=== PATIENT | male | born 1950 | race Hispanic/Latino ===

== ENCOUNTER 2023-02-06 21:53 | Emergency (ER) | payer OTHER ==
--- OUTSIDE RECORDS SUMMARY | 2023-02-06 21:57 | XMS REPORT | Continuity of Care Document ---
:1950 Author Organization [facility] t Address [address] [place] [address] [place] [id number] Care Team Providers Name Role Phone Reynold Rodriguez DO Primary Care Physician [phone] LOU Attending Clinician Unavailable Reynold Rodriguez Attending Clinician [phone] LOU Admitting Clinician Unavailable Payers Payer Name Policy Type Policy Number Effective Date Expiration Date Erin steen [facility] [place] - [id number] 2019 [employer] 00:00:00 (MEDICARE REPLACEMENT/ADVANT AGE - HMO) Problems Condition Condition Condition Status Onset Resolution Last Treating Co mments Source Name Details Category Date Date Treatment Clinician Date Hyperchole Hyperchole Problem Active [facility] sterolemia sterolemia 2-11 [facility] 00:[facility]: ty 00 [facility] Hypertensi Hypertensi Problem Active [facility] ve ve 2-11 Communi disorder Disorder 00:00: ty 00 [facility] Coronary Coronary Problem Active [facility] arterioscl Arterioscl 2-11 [facility] erosis erosis 00:00: ty 00 [facility] Gastroesop Gastroesop Problem Active 2020- S [facility] hageal hageal 2-11 Communi reflux Reflux 00:00: ty disease Disease 00 Hospita Clinics Umbilical Umbilical Problem Active [facility] hernia Hernia 2-11 Communi 00:00: ty 00 [facility] Clin[facility] Hiatal Hiatal Problem Active [place] hernia Hernia 2-11 Communi 00:00: ty 00 [facility] Stented Stented Problem Active [place] artery Artery 2- [facility] 00[facility] Prediabete Prediabete Problem Active [facility] s s 2 Communi 00:00: ty [facility] History of History of Problem Active [facility] cerebrovas Cerebrovas 2 Co mmuni cular cular 00:00: ty accident Accident 00 Hospit a without without l residual Residual Clinic s deficits Deficits Bilateral Bilateral Problem Active [facility] knee pain Knee Pain 2 Comm [facility] 00:00: ty [facility] 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 [facility] gait gait 06-20 00:00: Hospita 00 l Abnormal Abnormal Disease Active 2015-06 Metho di finding of finding of 06-20 trunk trunk 00:00: Hospita 00 l Dysarthria Dysarthria Disease Active 2015-06 M ethodi 06-20 00:00: Hospita 00 l Essential Essential Disease Active 2015-06 Met hodi hypertensi hypertensi 06-20 on on 00:00: Hospita 00 l Sialorrhea Sialorrhea Disease Active 2015-06 M ethodi 06-20 00:00: Hospita 00 l Headache Headache Disease Active 2015-06 Metho di 06-20 00:00: Hospita 00 l HLD HLD Disease Active 2015-06 Method[facility] (hyperlipi (hyperlipi 06-20 demia) demia) 00:00: Hospita 00 l 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 06-20 e e 00:00: Hospita polyneurop polyneurop 00 l athy athy Intracrani Intracrani Disease Active 2015-06 M ethodi al al 06-20 hemorrhage hemorrhage 00:00: Ho spita 00 l Obstructiv Obstructiv Disease Active 2015-06 M ethodi e sleep e sleep 06-20 apnea 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 00 l Pain in Pain in Disease Active 2015-06 [facility] extremity extremity 06-20 00:00: Hospita 00 l Rheumatoid Rheumatoid Disease Active 2015-06 M ethodi arthritis arthritis 06-20 00:00: Hospita 00 l Allergies, Adverse Reactions, Alerts Allergy Allergy Status Severity Reaction(s) Onset Inactive Treating Comm ents Source Name Type Date Date Clinician No Known Propensi Active 2015-06 [facility] i Drug ty to 06-20 st Allergie adverse 00:00: Hospita s reaction 00 l s to drug Social History Social Habit Start Date Stop Date Quantity Comments Source [facility] History of tobacco Current smoker [facility] History of Social 2019-02-02 2019-02-[address] function 00:00:00 00:00:00 Hospital Alcohol intake 2018-11-13 2018-11-13 Current [facility] 00:00:00 00:00:00 non-drinker of Hospital alcohol (finding) Tobacco use and 2018-05-13 2018-05-13 Smokeless [facility] exposure 00:00:00 00:00:00 tobacco non-user Hospital Sex Assigned At [birth year] [facility] 00:00:00 00:00:00 Hospital Smoking Status Start Date Stop Date Source Ex-smoker 2018-05-13 00:00:00 2018-05-13 [facility] Ordered Filled Start Stop Current Ordering Indication Dosage Frequency Signature Comments Components Source Medication Medication Date Date Medication? Clinician (SIG) Name Name aspirin 81 2017-06 Yes 81mg QD Chew 81 mg M ethodi mg chewable - daily. st tablet 13:40: Hospita 47 l metoprolol 2017-06 Yes 25mg QD Take 25 mg M ethodi succinate 07-[address] XL 13:40: daily. Hospita (TOPROL-XL) 47 l 25 mg 24 hr tablet nitroglycer 2017-[address] 0.4 M ethodi in 1-[address] (NITROSTAT) 13:40: the tongue Hospita 0.[address] 47 every 5 l tablet (five) minutes as needed for chest pain. ranitidine 2017-06 Yes 150mg Q.5D Take 150 Me thodi (ZANTAC) 1-[address] 150 MG 13:40: mouth 2 Hospita tablet 47 (two) l times a day. sertraline 2017-06 Yes 100mg QD Take 100 Me [facility] (ZOLOFT) 1-[address] 100 MG 13:40: mouth Hospita tablet 47 daily. 2 l tabs qd traZODone 2017-06 Yes 50mg QD Take 50 mg Me thodi (DESYREL) 1-[address] 50 MG 13:40: nightly as Hospit a tablet 47 needed for l sleep. busPIRone 2017-06 Yes 15mg Q.5D Take 15 mg [facility] (BUSPAR) 15 -[address] MG tablet 13:40: (two) Hospita 47 times a l day. aspirin 81 2017-06 Yes 81mg QD Chew 81 mg M ethodi mg chewable - daily. st tablet 13:40: Hospita 47 l metoprolol 2017-06 Yes 25mg QD Take 25 mg M ethodi succinate -[address] XL 13:40: daily. Hospita (TOPROL-XL) 47 l 25 mg 24 hr tablet nitroglycer 2017-[address] 0.4 M ethodi in 1-[address] (NITROSTAT) 13:40: the tongue Hospita 0.[address] 47 every 5 l tablet (five) minutes as needed for chest pain. ranitidine 2017-06 Yes 150mg Q.5D Take 150 Me [facility] (ZANTAC) 1-[address] 150 MG 13:40: mouth 2 Hospita tablet 47 (two) l times a day. sertraline 2017-06 Yes 100mg QD Take 100 Me [facility]odi (ZOLOFT) 1-[address] 100 MG 13:40: mouth Hospita tablet 47 daily. 2 l tabs qd traZODone 2017-06 Yes 50mg QD Take 50 mg Me [facility] (DESYREL) 1-[address] 50 MG 13:40: nightly as Hospit a tablet 47 needed for l sleep. busPIRone 2017-06 Yes 15mg Q.5D Take 15 mg Me thodi (BUSPAR) 15 -[address] MG tablet 13:40: (two) Hospita 47 times a l day. aspirin 81 2017-06 Yes 81mg QD Chew 81 mg M ethodi mg chewable - daily. st tablet 13:40: Hospita 47 l metoprolol 2017-06 Yes 25mg QD Take 25 mg M ethodi succinate -[address] XL 13:40: daily. Hospita (TOPROL-XL) 47 l 25 mg 24 hr tablet nitroglycer 2017-[address] 0.4 M ethodi in 1-[address] (NITROSTAT) 13:40: the tongue Hospita 0.[address] 47 every 5 l tablet (five) minutes as needed for chest pain. ranitidine 2017-06 Yes 150mg Q.5D Take 150 Me [facility] (ZANTAC) 1-[address] 150 MG 13:40: mouth 2 Hospita tablet 47 (two) l times a day. sertraline 2017-06 Yes 100mg QD Take 100 Me [facility] (ZOLOFT) 1-[address] 100 MG 13:40: mouth Hospita tablet 47 daily. 2 l tabs qd traZODone 2017-06 Yes 50mg QD Take 50 mg Me thodi (DESYREL) -[address] 50 MG 13:40: nightly as Hospit a tablet 47 needed for l sleep. busPIRone 2017-06 Yes 15mg Q.5D Take 15 mg Me thodi (BUSPAR) 15 -[address] MG tablet 13:40: (two) Hospita 47 times a l day. carvedilol Yes [id number] TAKE 1 M ethodi (COREG) 1-[address] 6.25 MG 00:00: MOUTH Hospita tablet 00 TWICE A l DAY WITH MEALS carvedilol Yes [id number] TAKE 1 M ethodi (COREG) 1-[address] 6.25 MG 00:00: MOUTH Hospita tablet 00 TWICE A l DAY WITH MEALS carvedilol Yes [id number] TAKE 1 M ethodi (COREG) 1-[address] 6.25 MG 00:00: MOUTH Hospita tablet 00 TWICE A l DAY WITH MEALS lisinopril 2016-06 Yes [id number] TAKE 1 M ethodi (PRINIVIL,Z 2-22 TABLET (30 st ESTRIL) 30 00:00: MG TOTAL) Ho spita mg tablet 00 BY MOUTH l ONCE DAILY. lisinopril 2016-06 Yes [id number] TAKE 1 M ethodi (PRINIVIL,Z 2-22 TABLET (30 st ESTRIL) 30 00:00: MG TOTAL) Ho spita mg tablet 00 BY MOUTH l ONCE DAILY. lisinopril 2016-06 Yes [id number] TAKE 1 M ethodi (PRINIVIL,Z 2-22 TABLET (30 st ESTRIL) 30 00:00: MG TOTAL) Ho spita mg tablet 00 BY MOUTH l ONCE DAILY. atorvastati 2016-06 Yes [id number] TAKE 1 Methodi n (LIPITOR) 0-[address] 80 MG 00:00: MOUTH Hospita tablet 00 EVERY DAY l atorvastati 2016-06 Yes [id number] TAKE 1 Methodi n (LIPITOR) 0-[address] 80 MG 00:00: MOUTH Hospita tablet 00 EVERY DAY l atorvastati 2016-06 Yes [id number] TAKE 1 Methodi n (LIPITOR) 0-[address] 80 MG 00:00: MOUTH Hospita tablet 00 EVERY DAY l dextrometho 2015-06 Yes [id number] 1{capsu QD Take 1 Methodi rphan-quini 1-03 le} capsule by st dine 00:00: mouth Hospita (NUEDEXTA) 00 daily. l 20-10 mg capsule dextrometho 2015-06 Yes [id number] 1{capsu QD Take 1 Methodi rphan-quini 1-03 le} capsule by st dine 00:00: mouth Hospita (NUEDEXTA) 00 daily. l 20-10 mg capsule dextrometho 2015-06 Yes [id number] 1{capsu QD Take 1 Methodi rphan-quini 1-03 le} capsule by st dine 00:00: mouth Hospita (NUEDEXTA) 00 daily. l 20-10 mg capsule ibuprofen 2015-06 Yes TK 1 T PO Met hodi (ADVIL,MOTR 0-[address] IN) 600 MG 00:00: TAKE WITH Ho spita tablet 00 FOOD l ibuprofen 2015-06 Yes TK 1 T PO Met hodi (ADVIL,MOTR 0-[address] IN) 600 MG 00:00: TAKE WITH Ho spita tablet 00 FOOD l ibuprofen 2015-06 Yes TK 1 T PO Met hodi (ADVIL,MOTR 0-[address] IN) 600 MG 00:00: TAKE WITH Ho spita tablet 00 FOOD l Fluad Quad Fluad Quad No Fluad Quad [place] [id number](6 (6 0640-1210( Communi 5yr up)(PF) 5yr up)(PF) 65yr t y 60 mcg (15 60 mcg (15 up)(PF) 60 Hospita mcg x mcg x mcg (15 l 4)/0.5mL IM 4)/0.5mL IM mcg x Clinics syringe ADM syringe ADM 4)/0.5mL 0.5 ML IM 0.5 ML IM IM syringe UTD UTD ADM 0.5 ML IM UTD Immunizations Ordered Immunization Filled Immunization Date Status Commen ts Source Name Name influenza, influenza, 2020-03-13 Completed [facility] injectable, injectable, 00:00:00 Hospital Cli nics quadrivalent quadrivalent Vital Signs Vital Name Observation Time Observation Value Comments Source BP Diastolic 2020-07-29 00:00:00 70 mm[Hg] [facility] s Height 2020-07-29 00:00:00 68 [in_i] [facility] s BMI (Body Mass 2020-07-29 00:00:00 35 kg/m2 [facility]) [facility] BP Systolic 2020-07-29 00:00:00 142 mm[Hg] [facility] s Body Weight 2020-07-29 00:00:00 3680 [oz_av] [facility] s Procedures Procedure Date / Time Performing Clinician Source Performed Colonoscopy [facility] Coronary Artery Bypass [facility] mmunity Grafts X 3 Hospital Clinics Open Heart Surgery [facility] Reconstruction of [facility] Cl[facility] cs Ligament of Knee Joint Plan of Care Planned Activity Planned Date Details Comments Source Future Scheduled 2023-01-18 [facility] Test 03:59:27 malignant neoplasm of colon (procedure) [code = 411334859] Future Scheduled 2023-01-18 [facility]ening for [facility] Test 03:59:27 malignant neoplasm of colon (procedure) [code = 782131886] Future Scheduled 2023-01-18 [facility]ening for [facility] Test 03:59:27 malignant neoplasm of colon (procedure) [code = 185449629] Future Scheduled 2023-01-18 COVID-19 VACCINE (#1) [facility] Test 03:59:27 [code = COVID-19 VACCINE (#1)] Future Scheduled 2023-01-18 SHINGLES [facility]ACCINES [facility] 03:59:27 of 2) [code = SHINGLES VACCINES (1 of 2)] Future Scheduled 2023-01-18 65+ [facility] 03:59:27 VACCINE (1 - PCV) [code = 65+ PNEUMOCOCCAL VACCINE (1 - PCV)] Future Scheduled 2023-01-18 INFLUENZA VACCINE [facility] Test 03:59:27 [code = INFLUENZA VACCINE] Future Scheduled 2023-01-18 Screening for [facility] Test 03:59:27 malignant neoplasm of colon (procedure) [code = 813032927] Future Scheduled 2023-01-18 Screening for [facility] Test 03:59:27 malignant neoplasm of colon (procedure) [code = 458437264] Future Scheduled 2022-02-15 HEPATITIS B VACCINES [facility] Test 04:01:48 (1 of 3 - 3-dose series) [code = HEPATITIS B VACCINES (1 of 3 - 3-dose series)] Future Scheduled 2022-02-15 COVID-19 VACCINE (#1) [facility] Test 04:01:48 [code = COVID-19 VACCINE (#1)] Future Scheduled 2022-02-15 SHINGLES VACCINES (1 [facility] Test 04:01:48 of 2) [code = SHINGLES VACCINES (1 of 2)] Future Scheduled 2022-02-15 65+ [facility]AL [facility] Test 04:01:48 VACCINE (1 - PCV) [code = 65+ PNEUMOCOCCAL VACCINE (1 - PCV)] Future Scheduled 2022-02-15 INFLUENZA VACCINE [facility] Test 04:01:48 [code = INFLUENZA VACCINE] Future Scheduled 2022-02-15 COLONOSCOPY SCREENING [facility] Test 04:01:48 [code = COLONOSCOPY SCREENING] Future Scheduled 2022-02-15 HEPATITIS B VACCINES [facility] Test 04:01:48 (1 of 3 - 3-dose series) [code = HEPATITIS B VACCINES (1 of 3 - 3-dose series)] Future Scheduled 2022-02-15 COVID-19 VACCINE (#1) [facility] Test 04:01:48 [code = COVID-19 VACCINE (#1)] Future Scheduled 2022-02-15 SHINGLES [facility]ACCINES ([facility] Test 04:01:48 of 2) [code = SHINGLES VACCINES (1 of 2)] Future Scheduled 2022-02-15 65+ P[facility]UMOCOCCAL [facility] Test 04:01:48 VACCINE (1 - PCV) [code = 65+ PNEUMOCOCCAL VACCINE (1 - PCV)] Future Scheduled 2022-02-15 INFLUENZA VACCINE [facility] Test 04:01:48 [code = INFLUENZA VACCINE] Future Scheduled 2022-02-15 COLONOSCOPY SCREENING [facility] Hospital Test 04:01:48 [code = COLONOSCOPY SCREENING] Encounters Start End Encounter Admission Attending Care Care Encounter Source Date/Time Date/Time Type Type Clinicians Facility Department ID 2020-08-03 2020-08-03 Outpatient EROBEYON_R [facility] [id number] [place] 12:18:00 12:18:00 0216 [facility] 2020-07-29 2020-07-29 Outpatient BRODY_R [facility] [id number] [place] 06:21:00 06:21:00 021 Commun i ty [facility]ospita l Clinics 2020-07-29 2020-07-29 [facility] [place] 00:00:00 00:00:00 [facility] DO: [address] [facility] [address], HOSPITAL Clinic s [place], [id number] BRODY , Ph. 2020-07-29 2020-07-29 Outpatient Brody [facility] [id number] 00:00:00 00:00:00 Reynold [id number] Ruiz [id number] 2020-07-27 2020-07-27 Outpatient ERKAIA_R [facility] [address] [place] 01:58:00 01:58:00 0209 Commun i ty Hospita l Clinics Results This patient has no known results.
[2023-02-06 22:45] LABS: Absolute Lymphocytes (CBC) 2.2 K/uL (0.7-4.9); Hematocrit 41.8 % (39.6-49.0); Lymphocytes % 24.7 % (15.3-44.8); MCV 87.6 fL (80-100); MPV 8.7 fL (7.6-11.3); Platelets 156 thou/uL (152-406); RBC Red Blood Cell Count 4.77 M/uL (4.33-5.43)
[2023-02-06 23:09] LABS: Albumin 3.7 g/dL (3.4-5.0); Bilirubin Direct 0.1 mg/dL (0-0.2); Bilirubin Indirect, Calculated 0.4 mg/dL (0.2-0.8); Bilirubin Total 0.5 mg/dL (0.2-1.0); Magnesium 2.3 mg/dL (1.6-2.4); Potassium 3.6 mEq/L (3.5-5.1); Protein, Total 7.3 g/dL (6.4-8.2); Troponin High Sensitivity 16.5 pg/mL (<58.9)
--- NOTE | 2023-02-06 23:40 | EDPHYS ---
Physician Documentation [facility] Name: Chas Bruce Age: 72 yrs Sex: Male : 1950 Arrival Date: 02/06/2023 Time: 21:53 Bed 8 Private MD: ED Physician Willard Walsh HPI: 02/06 22:17 This 72 yrs old Male presents to ER via Unassigned with complaints of Nose sp3 Bleed, dizziness. 22:17 72-year-old male with a history of coronary artery disease status post triple bypass, sp3 hypertension presents to the ED with chief complaint right-sided epistaxis now resolved and mild dizziness while walking into the emergency department. Dizziness is described as vertiginous in nature with room spinning and no signs or symptoms of syncope, near syncope, headache, chest pain, shortness of breath, abdominal pain, nausea, vomiting, diarrhea, rash, focal neurological deficit, weakness, or any other signs or symptoms on ROS at this time.. Historical: - Allergies: 22:21 No Known Allergies; mb9 - Home Meds: 22:21 atorvastatin 80 mg oral tablet every evening [Active]; aspirin 81 mg Oral capsule daily mb9 [Active]; isosorbide mononitrate 60 mg Oral Tablet, Extended Release 24 hr once [Active]; sertraline 100 mg oral tablet daily [Active]; - PMHx: 22:21 Myocardial infarction; Chronic obstructive lung disease; Hypertensive disorder; mb9 - PSHx: 22:21 Triple bypass; mb9 - Immunization history:: Adult Immunizations up to date. - Social history:: Smoking status: Patient denies any tobacco usage or history of. ROS: 22:18 Constitutional: Negative for fever, chills, and weight loss, Eyes: Negative for injury, sp3 pain, redness, and discharge, Neck: Negative for injury, pain, and swelling, Cardiovascular: Negative for chest pain, palpitations, and edema, Respiratory: Negative for shortness of breath, cough, wheezing, and pleuritic chest pain, Abdomen/GI: Negative for abdominal pain, nausea, vomiting, diarrhea, and constipation, Back: Negative for injury and pain, MS/Extremity: Negative for injury and deformity, Skin: Negative for injury, rash, and discoloration, Allergy/Immunology: Negative for hives, rash, and allergies, Endocrine: Negative for neck swelling, polydipsia, polyuria, polyphagia, and marked weight changes, Hematologic/Lymphatic: Negative for swollen nodes, abnormal bleeding, and unusual bruising. 22:18 All other systems are negative. Exam: 22:18 Constitutional: This is a well developed, well nourished patient who is awake, alert, sp3 and in no acute distress. Head/Face: Normocephalic, atraumatic. Eyes: Pupils equal round and reactive to light, extra-ocular motions intact. Lids and lashes normal. Conjunctiva and sclera are non-icteric and not injected. Cornea within normal limits. Periorbital areas with no swelling, redness, or edema. ENT: Nares patent. No nasal discharge, no septal abnormalities noted. External auditory canals are clear. Oropharynx with no redness, swelling, or masses, exudates, or evidence of obstruction, uvula midline. Mucous membranes moist. Neck: Trachea midline, no thyromegaly or masses palpated, and no cervical lymphadenopathy. Supple, full range of motion without nuchal rigidity, or vertebral point tenderness. No Meningismus. Chest/axilla: Normal chest wall appearance and motion. Nontender with no deformity. No lesions are appreciated. Cardiovascular: Regular rate and rhythm with a normal S1 and S2. No gallops, murmurs, or rubs. Normal PMI, no JVD. No pulse deficits. Respiratory: Lungs have equal breath sounds bilaterally, clear to auscultation and percussion. No rales, rhonchi or wheezes noted. No increased work of breathing, no retractions or nasal flaring. Abdomen/GI: Soft, non-tender, with normal bowel sounds. No distension or tympany. No guarding or rebound. No evidence of tenderness throughout. Back: No spinal tenderness. No costovertebral tenderness. Full range of motion. Skin: Warm, dry with normal turgor. Normal color with no rashes, no lesions, and no evidence of cellulitis. MS/ Extremity: Pulses equal, no cyanosis. Neurovascular intact. Full, normal range of motion. Neuro: Awake and alert, GCS 15, oriented to person, place, time, and situation. Cranial nerves II-XII grossly intact. Motor strength 5/5 in all extremities. Sensory grossly intact. Cerebellar exam normal. Normal gait. Psych: Awake, alert, with orientation to person, place and time. Behavior, mood, and affect are within normal limits. 22:18 ENT: Mild dried blood noted in the right anterior medial nare. No active bleeding noted.. Vital Signs: 22:20 BP 157 / 73; Pulse 68; Resp 18; Temp 98.2; Pulse Ox 100% on R/A; Weight 101.15 kg; mb9 Height 5 ft. 7 in. ; 23:25 BP 133 / 55; Pulse 55; Resp 18; Pulse Ox 93% on R/A; kd3 22:20 Body Mass Index 34.93 (101.15 kg, 170.18 cm) mb9 MDM: 22:11 Patient medically screened. sp3 22:18 Data reviewed: vital signs, nurses notes, lab test result(s), EKG, radiologic studies. sp3 ED course: 72-year-old male with epistaxis now resolved and dizziness/vertigo symptoms also very mild in nature. Patient has normal neurological exam. Work-up will include CT scan of the head, laboratory values, and general observation. I am not highly suspicious for acute coronary syndrome, TIA/CVA spectrum, or any other critical findings including sepsis and shock. Patient is on antiplatelet agents of aspirin but no other blood thinners. Disposition pending work-up and patient course with likely discharge home to PCP follow-up.. 23:12 ED course: Work-up was negative except for CT scan of the head which is pending. If sp3 that is negative we will safely discharge patient home. EKG demonstrates normal sinus rhythm at 64 bpm with inferior Q wave isolated in lead III. No acute findings noted. Patient has no chest pain or shortness of breath. ST/T-segment's without evidence of acute ischemia. Troponin is negative.. 02/06 22:16 Order name: Basic Metabolic Panel; Complete Time: 23:10 sp3 02/06 22:16 Order name: CBC with Diff; Complete Time: 22:57 sp3 02/06 22:16 Order name: Hepatic Function; Complete Time: 23:10 sp3 02/06 22:16 Order name: Magnesium; Complete Time: 23:10 sp3 02/06 22:16 Order name: Protime (+inr); Complete Time: 22:57 sp3 02/06 22:16 Order name: Troponin High Sensitivity; Complete Time: 23:10 sp3 02/06 22:16 Order name: CT Head Brain wo Cont sp3 02/06 22:16 Order name: EKG; Complete Time: 22:17 sp3 02/06 22:16 Order name: Cardiac monitoring; Complete Time: 22:38 sp3 02/06 22:16 Order name: EKG - Nurse/Tech; Complete Time: 22:38 sp3 02/06 22:16 Order name: IV Saline Lock; Complete Time: 22:38 sp3 02/06 22:16 Order name: Labs collected and sent; Complete Time: 22:38 sp3 02/06 22:16 Order name: O2 Sat Monitoring; Complete Time: 22:38 sp3 Administered Medications: No medications were administered Disposition Summary: 02/06/23 23:39 Discharge Ordered Location: Home sp3 Condition: Stable sp3 Diagnosis - Epistaxis sp3 Followup: sp3 - With: Private Physician - When: Upon discharge from the Emergency Department - Reason: Continuance of care Discharge Instructions: - Discharge Summary Sheet sp3 - Nosebleed, Adult sp3 Forms: - Medication Reconciliation Form sp3 - Thank You Letter sp3 - Antibiotic Education sp3 - Prescription Opioid Use sp3 - Patient Portal Instructions sp3 - Leadership Thank You Letter sp3 Signatures: Dispatcher [employer] Willard Cantrell MD MD sp3 Brooke Navarro RN RN mb9
--- NOTE | 2023-02-06 23:40 | ER ---
Nurse's Notes [facility] Name: Chas Bruce Age: 72 yrs Sex: Male : 1950 Arrival Date: 02/06/2023 Time: 21:53 Bed 8 Private MD: Diagnosis: Epistaxis Presentation: 02/06 22:20 Chief complaint: Patient states: "I woke up with the sniffles and started having a nose mb9 bleed in my right nose. It's not bleeding anymore. Now I feel dizzy when walking". Coronavirus screen: Vaccine status: Patient reports receiving the 2nd dose of the covid vaccine. Ebola Screen: No symptoms or risks identified at this time. Initial Sepsis Screen: Does the patient meet any 2 criteria? No. Patient's initial sepsis screen is negative. Does the patient have a suspected source of infection? No. Patient's initial sepsis screen is negative. Risk Assessment: Do you want to hurt yourself or someone else? Patient reports no desire to harm self or others. Onset of symptoms was February 06, 2023. 22:20 Method Of Arrival: Ambulatory mb9 22:20 Acuity: ADELFO 3 mb9 Triage Assessment: 22:23 General: Appears in no apparent distress. Behavior is cooperative. Pain: Denies pain. mb9 Neuro: Chauhan Agitation-Sedation Scale (RASS): 0 - Alert and Calm Level of Consciousness is awake, alert, obeys commands, Oriented to person, place, time, situation, Appropriate for age Reports dizziness. Cardiovascular: Patient's skin is warm and dry. Respiratory: Airway is patent Respiratory effort is even, unlabored, Respiratory pattern is regular, symmetrical. Musculoskeletal: Range of motion: intact in all extremities. Historical: - Allergies: 22:21 No Known Allergies; mb9 - Home Meds: 22:21 atorvastatin 80 mg oral tablet every evening [Active]; aspirin 81 mg Oral capsule daily mb9 [Active]; isosorbide mononitrate 60 mg Oral Tablet, Extended Release 24 hr once [Active]; sertraline 100 mg oral tablet daily [Active]; - PMHx: 22:21 Myocardial infarction; Chronic obstructive lung disease; Hypertensive disorder; mb9 - PSHx: 22:21 Triple bypass; mb9 - Immunization history:: Adult Immunizations up to date. - Social history:: Smoking status: Patient denies any tobacco usage or history of. Screenin:38 [facility] ED Fall Risk Assessment (Adult) History of falling in the last 3 months, rv including since admission No falls in past 3 months (0 pts) Confusion or Disorientation No (0 pts) Intoxicated or Sedated No (0 pts) Impaired Gait No (0 pts) Mobility Assist Device Used No (0 pt) Altered Elimination No (0 pt) Score/Fall Risk Level 0 - 2 = Low Risk Oriented to surroundings, Maintained a safe environment, Educated pt \\T\\ family on fall prevention, incl call for assistance when getting out of bed, Assessed \\T\\ reinforced patient's understanding of fall precautions, Provided non-skid footwear, Hourly rounding (assess needs \\T\\ fall precautionary measures) done, Used ambulatory aids as needed (educated on \\T\\ assisted with), Used gait belt as appropriate. Abuse screen: Denies threats or abuse. Denies injuries from another. Nutritional screening: No deficits noted. Tuberculosis screening: No symptoms or risk factors identified. Assessment: 22:39 General: Appears in no apparent distress. Behavior is calm, cooperative. Pain: Denies rv pain. Neuro: Level of Consciousness is awake, alert, obeys commands, Oriented to person, place, time, situation. Cardiovascular: Capillary refill < 3 seconds Rhythm is regular. Respiratory: Airway is patent Respiratory effort is even, unlabored. EENT: Nares are clear. Derm: Skin is intact. Vital Signs: 22:20 BP 157 / 73; Pulse 68; Resp 18; Temp 98.2; Pulse Ox 100% on R/A; Weight 101.15 kg; mb9 Height 5 ft. 7 in. ; 23:25 BP 133 / 55; Pulse 55; Resp 18; Pulse Ox 93% on R/A; kd3 22:20 Body Mass Index 34.93 (101.15 kg, 170.18 cm) mb9 ED Course: 21:58 Patient arrived in ED. mr 22:08 Willard Walsh MD is Attending Physician. sp3 22:08 Marilyn Jolley, TINO is Primary Nurse. kd3 22:15 No provider procedures requiring assistance completed. Inserted saline lock: 20 gauge rv in right antecubital area, using aseptic technique. Blood collected. 22:20 Arm band placed on. mb9 22:21 Triage completed. mb9 22:24 Bed in low position. Call light in reach. Side rails up X 1. Client placed on mb9 continuous cardiac and pulse oximetry monitoring. NIBP monitoring applied. 23:09 CT Head Brain wo Cont In Process Unspecified. EDMS 23:49 IV discontinued, intact, bleeding controlled, No redness/swelling at site. Pressure kd3 dressing applied. 23:50 Provided Education on: . kd3 Administered Medications: No medications were administered Medication: 22:40 VIS not applicable for this client. rv Outcome: 23:39 Discharge ordered by . sp3 23:49 Discharged to home ambulatory, with family. kd3 23:49 Condition: stable 23:49 Discharge instructions given to patient, family, Instructed on discharge instructions, follow up and referral plans. Demonstrated understanding of instructions, follow-up care. 23:50 Patient left the ED. kd3 Signatures: Dispatcher [employer] [facility] Brooke John Ronaldo RN RN rv Willard Walsh MD MD sp3 Marilyn Jolley RN RN kd3 Brooke Navarro, RN RN mb9
[2023-02-07 00:08] VITALS: TEMP 98.2
[2023-02-07 00:14] VITALS: BP 133/55; O2SAT 93
--- NOTE | 2023-02-07 11:40 | RAD REPORT ---
EXAM DESCRIPTION: CT - Head Brain Wo Cont - 02/07/2023 12:51 am CLINICAL HISTORY: The patient is 72 years old and is Male; DIZZINESS TECHNIQUE: Axial computed tomography images of the head/brain without intravenous contrast. Sagitt al and coronal reformatted images were created and reviewed. This CT exam was performed using one o r more of the following dose reduction techniques: automated exposure control, adjustment of the mA and/or kV according to patient size, and/or use of iterative reconstruction technique. Report is bas ed on review of 375 images provided at the time of interpretation. COMPARISON: No relevant prior studies available. FINDINGS: BRAIN: There is diffuse cerebral atrophy present, consistent with this patient's age. There is patchy hypoattenuation of the deep white matter which is non-specific, but most likely owing to chronic small vessel ischemic change in a patient of this age group. 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 The bolanos-white differentiation is maintained. There is no cerebr al edema. There is no intracranial hemorrhage, mass effect or midline shift. There are no extra-axial fluid collections. VENTRICLES: Unremarkable. No ventriculomegaly. BONES/JOINTS: No acute fracture. SOFT TISSUES: Unremarkable. SINUSES: Unremarkable as visualized. No acute sinusitis. MASTOID AIR CELLS: Unremarkable as visualized. No mastoid effusion. ORBITS: Unremarkable as visualized. IMPRESSION: No acute intracranial findings. Chronic findings as detailed above. Electronically signed by: Kiertsen Paul MD 02/06/2023 11:31 PM CDT Due to temporary technical issues with the PACS/Fluency reporting system, reports are being signed by the in house radiologists without review as a courtesy to insure prompt reporting. The interpreting radiologist is fully responsible for the content of the report.
--- NOTE | 2023-02-07 12:57 | EKG ---
Test Date: 2023-02-06 Test Time: 22:33:40 Review Rn: RV MEASUREMENT RESULTS: Intervals: Rate: 64 WY: 142 QRSD: 88 QT: 428 QTc: 441 [place]: P: 49 W[place]: 142 QRS: 19 T: -35 INTERPRETIVE STATEMENTS: Normal sinus rhythm Minimal voltage criteria for LVH, may be normal variant Inferior infarct, age undetermined Abnormal ECG No previous ECG available for comparison Electronically Signed On 02-07-23 12:55:41 CDT by Yossi Martinez
== END 2023-02-06 23:50 | disposition home or self-care (01) ==
LOC: ER 21:53
DX: R04.0 Epistaxis (principal); I10 Essential (primary) hypertension; J44.9 Chronic obstructive pulmonary disease, unspecified; I25.2 Old myocardial infarction; Z95.1 Presence of aortocoronary bypass graft; Z79.82 Long term (current) use of aspirin
CPT/HCPCS: 36415; 70450; 80048; 80076; 83735; 84484; 85025; 85610; 93005; 99284